=== PATIENT | male | born 1985 | race African-American/Black ===

== ENCOUNTER 2019-06-07 10:05 | Emergency (ER) | payer BC ==
[~2019-06-07] VITALS: Ht 190.5 cm; Wt 117.9 kg
[2019-06-07 10:05] VITALS: BP 135/85
[2019-06-07] MEDS ORDERED: PERCOCET 5-3251 EACH PO (10:07)
== END 2019-06-07 11:43 | disposition home or self-care (01) ==
LOC: ER 10:05
DX: M79.651 Pain in right thigh (principal); M25.561 Pain in right knee; R60.0 Localized edema